=== PATIENT | female | born 1995 | race American Indian/Alaskan Native ===

== ENCOUNTER 2022-07-17 12:52 | Emergency (ER) | payer SELFPAY ==
[2022-07-17] MEDS ORDERED: LIDOCAINE VISCOUS 2% 15 ML ORAL LIQD MM ONE (19:44)
[2022-07-17] MEDS ORDERED: ALUM-MAG HYDROXIDE-SIMETHICONE 200-200-20MG/5ML ORAL LIQD 30 ML PO STA (19:44)
[2022-07-17 20:29] LABS: Hemoglobin 14.8 gm/dl (10.1-14.3); Lymphocytes # (Auto) 1.1 K/mm3 (1.2-5.4); Lymphocytes % (Auto) 30.9 % (13.4-35.0); Mean Corpuscular HGB Conc 34 % (30-34); Mean Corpuscular Volume 90 fl (79-97); Monocytes # (Auto) 0.4 K/mm3 (0.0-0.8); Monocytes % (Auto) 11.3 % (0.0-7.3); Platelet Count 318 K/mm3 (140-440); Red Blood Count 4.92 M/mm3 (3.65-5.03); Red Cell Distribution Width 13.4 % (13.2-15.2)
[2022-07-17 20:51] LABS: Alanine Aminotransferase 12 units/L (7-56); Albumin 4.9 g/dL (3.9-5); Blood Urea Nitrogen 8 mg/dL (7-17); Calcium 9.9 mg/dL (8.4-10.2); Hemolysis Index 4
[2022-07-17 21:05] LABS: BUN/Creatinine Ratio 11
--- NOTE | 2022-07-17 21:07 | Emergency Department Report ---
ED Abdominal Pain HPI - General Chief Complaint: Abdominal Pain Stated Complaint: CHEST PAIN, STOMACH PAIN Time Seen by Provider: 07/17/22 18:49 Source: patient Mode of arrival: Ambulatory Limitations: No Limitations - History of Present Illness Initial Comments: 27-year-old female with metformin complaining of recurrent epigastric pain associate with a burning sensation and burning pain to the left lower quadrant which is associated with meals and spicy food. She reports no fever, chills, sweats but no hemoptysis no hematemesis medic easier occasional nausea but no vomiting. Ports no chest pain or palpitations. MD Complaint: abdominal pain Location: LLQ, epigastric Radiation: none Migration to: no migration - Related Data Previous Rx's Medication Instructions Recorded Last Taken Type Amoxicillin [Amoxicillin TAB] 875 mg PO BID #28 07/17/22 Unknown Rx Bismuth Subsalicylate [Bismuth] 262 mg PO BID #30 07/17/22 Unknown Rx Clarithromycin [Biaxin] 500 mg PO BID #28 tab 07/17/22 Unknown Rx Omeprazole 40 mg PO DAILY #30 07/17/22 Unknown Rx Allergies Allergy/AdvReac Type Severity Reaction Status Date / Time No Known Allergies Allergy Verified 07/17/22 19:55 ED Review of Systems ROS: Stated complaint: CHEST PAIN, STOMACH PAIN Other details as noted in HPI Comment: All other systems reviewed and negative ED Past Medical Hx - Past Medical History Previous Medical History?: No - Surgical History Past Surgical History?: Yes Additional Surgical History: Right hand - Medications Home Medications: Home Medications Medication Instructions Recorded Confirmed Last Taken Type Amoxicillin [Amoxicillin TAB] 875 mg PO BID #28 07/17/22 Unknown Rx Bismuth Subsalicylate [Bismuth] 262 mg PO BID #30 07/17/22 Unknown Rx Clarithromycin [Biaxin] 500 mg PO BID #28 tab 07/17/22 Unknown Rx Omeprazole 40 mg PO DAILY #30 07/17/22 Unknown Rx ED Physical Exam - General Limitations: No Limitations General appearance: alert, in no apparent distress - Head Head exam: Present: atraumatic, normocephalic - Eye Eye exam: Present: normal appearance - ENT ENT exam: Present: mucous membranes moist - Neck Neck exam: Present: normal inspection - Respiratory Respiratory exam: Present: normal lung sounds bilaterally. Absent: respiratory distress - Cardiovascular Cardiovascular Exam: Present: regular rate, normal rhythm. Absent: systolic murmur, diastolic murmur, rubs, gallop - GI/Abdominal GI/Abdominal exam: Present: soft, tenderness (To the epigastric region.), normal bowel sounds. Absent: guarding, rebound - Extremities Exam Extremities exam: Present: normal inspection - Back Exam Back exam: Present: normal inspection - Neurological Exam Neurological exam: Present: alert, oriented X3 - Psychiatric Psychiatric exam: Present: normal affect, normal mood - Skin Skin exam: Present: warm, dry, intact, normal color. Absent: rash ED Course Vital Signs 07/17/22 07/17/22 13:58 20:35 Temperature 99.1 F Pulse Rate 86 Respiratory 16 Rate Blood Pressure 135/100 O2 Sat by Pulse 100 98 Oximetry ED Medical Decision Making - Lab Data Result diagrams: 07/17/22 19:57 07/17/22 19:56 - Medical Decision Making This patient presents with abdominal pain of unclear etiology. A CT scan was performed to evaluate for potential causes of the abdominal pain, however, neith er the clinical exam nor the CT has identified an emergent etiology for the abdominal pain. Specifically, given the benign exam, the laboratory studies, and unremarkable CT, I have a very low suspicion for appendicitis, ischemic bowel, bowel perforation, or any other life threatening disease. I have discussed with the patient the level of uncertainty with undifferentiated abdominal pain and clearly explained the need to follow-up as noted on the discharge instructions, or return to the Emergency Department immediately if the pain worsens, develops fever, persistent and uncontrollable vomiting, or for any new symptoms or concerns. Critical care attestation.: If time is entered above; I have spent that time in minutes in the direct care of this critically ill patient, excluding procedure time. ED Disposition Disposition: 01 HOME / SELF CARE / HOMELESS Is pt being admited?: No Does the pt Need Aspirin: No Condition: Stable Instructions: Peptic Ulcer, Abdominal Pain, Adult, Upper Endoscopy, Adult, Abdominal Pain (ED) Additional Instructions: You have been evaluated emergency department today for abdominal pain. Your evaluation did not show evidence of any medical conditions requiring emergent intervention at this time. Please be sure to follow-up with gastroenterology to obtain your and endoscopy to further evaluate your abdominal pain and for peptic ulcer disease/gastritis or other gastric involving diagnoses.. Please schedule an appointment with your primary care physician. Return to emergency department if you experience worsening uncontrolled pain, fevers of 100.4 or greater, recurrent vomiting, inability to tolerate food or fluids by mouth, bloody stools or vomit, black tarry stools, or any other concerning symptoms. Prescriptions: Amoxicillin [Amoxicillin TAB] 875 mg PO BID #28 Clarithromycin [Biaxin] 500 mg PO BID #28 tab Bismuth Subsalicylate [Bismuth] 262 mg PO BID #30 Omeprazole 40 mg PO DAILY #30 Referrals: [facility] [Provider Group] - 3-5 Days
[2022-07-17 21:17] VITALS: BP 143/97
== END 2022-07-17 21:44 | disposition home or self-care (01) ==
LOC: ED 12:52
DX: R10.9 Unspecified abdominal pain (principal)
CPT/HCPCS: 36415; 80053; 83690; 85025; 99283